=== PATIENT | male | born 1950 | race Caucasian/White ===

== ENCOUNTER 2017-12-13 05:17 | Day surgery (SDC) | payer OTHER, MEDICARE, BC ==
[2017-12-13] MEDS ORDERED: Midazolam 1 MG/ML 2 ML SDV IV ONE ×3 (05:18→06:28)
[2017-12-13] MEDS ORDERED: fentaNYL 100 MCG/2 ML SDV IV ONE ×3 (05:18→06:28)
[2017-12-13] MEDS ORDERED: Dextrose 5%-0.45% NaCl 1,000 ML IV SCH ×2 (06:00→06:30)
[2017-12-13] MEDS ORDERED: fentaNYL 100 MCG/2 ML SDV ONE (06:13)
[2017-12-13] MEDS ORDERED: Midazolam 1 MG/ML 2 ML SDV ONE (06:13)
[2017-12-13] MEDS ORDERED: Sodium Chloride 0.9% 10 ML Syringe FLUSH PRN (06:26)
--- NOTE | 2017-12-13 13:15 | OR ---
DATE: 12/13/2017 PROCEDURE: Esophagogastroduodenoscopy and multiple pinch biopsies. INSTRUMENT USED: GIF-H180 Olympus video panendoscope. PREMEDICATIONS: No oral topical anesthesia used. Fentanyl 100 mcg intravenous, Versed 2 mg intravenous. The procedure was done under pulse oximetry, BP recording, and vehicle monitor technician. INDICATION: The patient with longstanding heartburn on acid suppressants, also with left-sided upper abdominal pain as well as recently detected anemia, unexplained. DESCRIPTION OF PROCEDURE: Esophagogastroduodenoscopy is performed for detection of any active erosive lesions, Sow esophagus and/or malignancy also under consideration, H. pylori status to be determined, small bowel biopsies to be obtained for celiac disease if indicated, endoscopic hemostasis therapy if needed. The scope was passed with ease. Adequate visualization of the esophagus was made from proximal to distal areas. No upper esophageal lesions identified. No distal esophageal stricture. No uphill or downhill esophageal varices. No Radha-Turner tear. No evidence of erosive esophagitis by [place] criteria. No esophageal polyp or tumor mass identified. Z-line was seen at around 40 cm distal to the oral verge, configuration consistent with grade 1 by ZAP classification. No proximal gastric varices noted. Gastric fundus examination by retroflexion showed couple of diminutive benign-appearing polyps. No gastric ulcer, malignant mass, or vascular ectasia identified. Duodenal bulb showed no ulcer. Visualized second part of the duodenum was unremarkable. Multiple pinch biopsies 4 in number, were taken from different areas of the second part of the duodenum and also of tissues that obtained from the duodenal bulb at 9 and 12 o'clock positions and sent for any histopathologic evidence of celiac disease. Multiple pinch biopsies were also obtained from the gastric antrum and proximal body and sent for PyloriTek test for H. pylori and histopathology. No bleeding was noted from any of the visualized areas at the completion of examination. Photographs were taken of the duodenal bulb, gastric antrum, fundus, and distal esophagus. IMPRESSION: Diminutive gastric fundus polyps. The patient tolerated the procedure well. [facility] /[id number]
--- NOTE | 2017-12-13 13:39 | LETTER ---
12/13/2017 Karolyn Workman NP [address] [place] [id number] RE: LEAH STOCK : 1950 Dear Ms. Workman: Mr. Leah Stock had esophagogastroduodenoscopy done this morning and he tolerated the procedure well. I herewith send a copy of the endoscopy note and photographs for your review. Thank you. Sincerely, [facility] /[id number]
== END 2017-12-13 08:43 | disposition home or self-care (01) ==
LOC: DL.ENDO 05:17
PROVIDERS: ATTEND Internal Medicine Gastroenterology
DX: R12 Heartburn (principal); R10.12 Left upper quadrant pain; D64.9 Anemia, unspecified; K31.7 Polyp of stomach and duodenum; K31.89 Other diseases of stomach and duodenum; E66.09 Other obesity due to excess calories; E78.5 Hyperlipidemia, unspecified
CPT/HCPCS: 43239; 87077; J2250; J3010; J7042